=== PATIENT | female | born 1945 | race African-American/Black ===

== ENCOUNTER 2017-03-03 11:08 | Day surgery (SDC) | payer OTHER ==
[~2017-03-03] VITALS: Ht 154.9 cm; Wt 72.6 kg
--- NOTE | ~2017-03-03 | EGD ---
EGD REPORT [facility] [address] [place] [address] NAME: TOMAS AMBROCIO : [birth year] [place] [facility] [place] [id number] AGE: 71 ADM/REG DATE : 03/03/17 MR#: [id number] REPORT SERV DATE: 03/03/17 DICTATED BY: SANTIAGO CANTU DATE: 03/03/17 REPORT STATUS : Draft TRANSCRIBED BY: [facility] DATE: 03/03/17 Endoscopy Center Patient Name: Tomas Ambrocio Date of : 1945 Attending MD: SANTIAGO CANTU, Procedure Date No Time: 03/03/2017 Procedure: Upper EUS Indications: Gastric deformity on endoscopy/Subepithelial tumor versus extrinsic compression Referring MD: FLACO MORRISSEY MD, VIKA BERNARD MD Medicines: Monitored Anesthesia Care Complications: No immediate complications. Estimated blood loss: None. Procedure: Pre-Anesthesia Assessment: - ASA Grade Assessment: II - A patient with mild systemic disease. After obtaining informed consent, the endoscope was passed under direct vision. Throughout the procedure, the patient's blood pressure, pulse, and oxygen saturations were monitored continuously. The Endoscope was introduced through the mouth, and advanced to the second part of duodenum. The GIF [id number] was introduced through the mouth, and advanced to the second part of duodenum. Findings: Endoscopic Finding : The examined esophagus was endoscopically normal. A single small papule (nodule) with no bleeding and no stigmata of recent bleeding was found on the anterior wall of the gastric body. Biopsies were taken with a cold forceps for histology. Verification of patient identification for the specimen was done. Estimated blood loss was minimal. A single small papule (nodule) with no bleeding and no stigmata of recent bleeding was found in the gastric body and on the posterior wall of the gastric body. Biopsies were taken with a cold forceps for histology. Verification of patient identification for the specimen was done. Estimated blood loss was minimal. The exam of the stomach was otherwise normal. The cardia and gastric fundus were normal on retroflexion. The examined duodenum was endoscopically normal. Endosonographic Finding : An oval intramural (subepithelial) lesion was found in the body of the stomach. It was encountered at 8 cm distal to the gastroesophageal junction. The lesion was hypoechoic. Sonographically, the lesion appeared to originate from the muscularis propria (Layer 4). The lesion EGD REPORT [address] [address] NAME: TOMAS AMBROCIO : [birth year] [place] [facility] [place]#: [id number] AGE: 71 ADM/REG DATE : 03/03/17 MR#: [id number] REPORT SERV DATE: 03/03/17 DICTATED BY: SANTIAGO CANTU DATE: 03/03/17 REPORT STATUS : Draft TRANSCRIBED BY: [employer] DATE: 03/03/17 measured 4 mm (in maximum thickness). The outer endosonographic borders were well defined. An oval intramural (subepithelial) lesion was found in the body of the stomach. The lesion was hypoechoic. Sonographically, the lesion appeared to originate from the muscularis propria (Layer 4). The lesion measured 7 mm (in maximum thickness). The lesion also measured 4 mm in diameter. The outer endosonographic borders were well defined. There was no sign of significant endosonographic abnormality in the entire pancreas. The pancreas was well visualized, no pathologic lymphadenopathy, no masses. There was no sign of significant endosonographic abnormality in the examined duodenum. No lymphadenopathy seen. Impression: - Normal esophagus. - A single small papule (nodule) with no bleeding and no stigmata of recent bleeding was found in the stomach. Biopsied. - A single small papule (nodule) with no bleeding and no stigmata of recent bleeding was found in the stomach. Biopsied. - Normal examined duodenum. - An intramural (subepithelial) lesion was found in the body of the stomach. The lesion appeared to originate from within the muscularis propria (Layer 4). The diagnosis is a stromal cell (smooth muscle) neoplasm. - An intramural (subepithelial) lesion was found in the body of the stomach. The lesion appeared to originate from within the muscularis propria (Layer 4). The diagnosis is a stromal cell (smooth muscle) neoplasm. - There was no sign of significant pathology in the entire pancreas. - There was no sign of significant pathology in the examined duodenum. Recommendation: - Return to previous diet. - Continue present medications. - Await path results. - Repeat the upper endoscopic ultrasound in 2 years for surveillance. Procedure Code(s): --- Professional --- 89495, Esophagogastroduodenoscopy, flexible, transoral; with endoscopic ultrasound examination, including the esophagus, stomach, and either the duodenum or a surgically altered stomach where the jejunum is examined distal to the anastomosis EGD REPORT [address] [place]. [address] NAME: TOMAS AMBROCIO : [birth year] [place] : [facility] [place] PAT#: [id number] AGE: 71 ADM/REG DATE : 03/03/17 MR#: [id number] REPORT SERV DATE: 03/03/17 DICTATED BY: SANTIAGO CANTU DATE: 03/03/17 REPORT STATUS : Draft TRANSCRIBED BY: [employer] DATE: 03/03/17 [id number], 59, Esophagogastroduodenoscopy, flexible, transoral; with biopsy, single or multiple Diagnosis Code(s): --- Professional --- K31.9, Disease of stomach and duodenum, unspecified D49.0, Neoplasm of unspecified behavior of digestive system CPT copyright 2013 [employer]. All rights reserved. The codes documented in this report are preliminary and upon fire extinguisher mechanic review may be revised to meet current compliance requirements. SANTIAGO CANTU, 03/03/2017 12:41 PM Number of Addenda: 0 Note Initiated On: 03/03/2017 11:51 AM Angelique Noel, [place] [id number]
[~2017-03-03 11:08] MED LIST: ASABAYER PO; CARDU4 PO; FLONASE INH; HYZAAR 100/25 T1 TAB PO; HYZAAR1 TAB PO; MIRALAX POWDER1 PKT PO; MSCONT15 PO; MULTIVIT/MIN PO; NORV5 PO; PCET PO; PROTONIX PO; TAMIFLU OR; V5 PO; ZOCOR10 PO
[2017-03-03 12:03] LABS: BUN (BLOOD UREA NITROGEN) 13 MG/DL (6-23); CALCIUM, SERUM 9.7 MG/DL (8.5-10.4); CHLORIDE, SERUM 107 MMOL/L (96-112); CO2 (CARBON DIOXIDE) 26 MMOL/L (24-34); GFR AFRICAN AMERICAN 87 ML/MIN (>=60); GFR NON AFRICAN AMERICAN 75 ML/MIN (>=60); GLUCOSE, SERUM 81 MG/DL (60-99); POTASSIUM, SERUM 3.9 MMOL/L (3.5-5.3); SODIUM, SERUM 140 MMOL/L (135-148)
== END 2017-03-03 23:59 | disposition home or self-care (01) ==
LOC: DMU 11:08
PROVIDERS: Anesthesiology; Internal Medicine Gastroenterology
PROC: 0DB68ZX Excision of Stomach, Via Natural or Artificial Opening Endoscopic, Diagnostic (ICD-10-PCS; 2017-03-03)
PROC: 0DJ08ZZ Inspection of Upper Intestinal Tract, Via Natural or Artificial Opening Endoscopic (ICD-10-PCS; principal; 2017-03-03 12:00)
DX: C49.A2 Gastrointestinal stromal tumor of stomach (principal); I10 Essential (primary) hypertension; Z88.1 Allergy status to other antibiotic agents; Z88.5 Allergy status to narcotic agent; Z88.8 Allergy status to other drugs, medicaments and biological substances; Z79.899 Other long term (current) drug therapy; Z90.710 Acquired absence of both cervix and uterus; Z90.49 Acquired absence of other specified parts of digestive tract; Z98.890 Other specified postprocedural states
CPT/HCPCS: 80048; 88305; 88341; 88342; C1725